=== PATIENT | male | born 1990 | race African-American/Black ===

== ENCOUNTER 2020-11-18 22:55 | Emergency (ER) | payer OTHER ==
[~2020-11-18] VITALS: Ht 180.3 cm; Wt 97.5 kg
[2020-11-18 22:58] VITALS: BP 141/89
--- NOTE | 2020-11-18 23:07 | NUR ---
[facility] officer Maximiliano #[id number]
--- NOTE | 2020-11-18 23:31 | NUR ---
Pt refused CT. Dr. Velazquez made aware.
--- NOTE | 2020-11-19 00:05 | NUR ---
d/c with [facility]. d/c education given. d/c back [facility] Officer Maximiliano #[id number]
== END 2020-11-19 00:05 | disposition home or self-care (01) ==
LOC: MED 22:55
DX: S09.90XA Unspecified injury of head, initial encounter (principal); F10.129 Alcohol abuse with intoxication, unspecified; Z02.89 Encounter for other administrative examinations; V89.2XXA Person injured in unspecified motor-vehicle accident, traffic, initial encounter; Y93.89 Activity, other specified; Y92.89 Other specified places as the place of occurrence of the external cause; Y99.8 Other external cause status
CPT/HCPCS: 99283